=== PATIENT | male | born 1985 | race Caucasian/White ===

== ENCOUNTER 2018-03-30 11:39 | Emergency (ER) | payer OTHER ==
--- NOTE | 2018-03-30 12:04 | EDPHY ---
H & P Stated Complaint: 15 sec exposure to unknown fumes ?diesel;just wants to get checked out Time Seen by Provider: 03/30/18 12:04 HPI/ROS: HPI: This is a 32-year-old male who presents with Chief Complaint: 15 sec exposure to unknown fumes ?diesel;just wants to get checked out Location: Body Quality: Fume inhalation Duration: Prior to arrival Signs and Symptoms: no shortness of breath at rest, no shortness of breath on exertion, no cough, no chest pain, no palpitations, no lower extremity edema, no wheezing, no orthopnea, no paroxysmal nocturnal dyspnea, no fever, no injury/ trauma, no hemoptysis, no carpal pedal spasms Timing: Acute Severity: Mild Context: Patient works at the [employer] office and presents from work with walking into an area and opening the door and smelling a strong odor that was fume like in nature. He reports that he believes that was diesel fumes. Immediately started to cough and feel lightheaded. He has no history of lung disease and is a former smoker. He reports that he has a mild generalized headache. Denies worse headache of his life or thunderclap symptoms. Patient reports that the dizziness has resolved. Modifying Factors: None Comment: ROS: A comprehensive 10 system review of systems is otherwise negative aside from elements mentioned in the history of present illness. MEDICAL/SURGICAL/SOCIAL HISTORY: Medical history: Generally healthy. Does not take any regular medications. Surgical history: Denies Social history: Former smoker. Denies drug use. CONSTITUTIONAL: Extremely polite and cooperative adult white male, awake and alert, no obvious distress HEENT: Atraumatic and normocephalic, PERRL, EOMI. Nares patent; no rhinorrhea; no nasal mucosal edema. Tympanic membranes clear. Oropharynx clear, no exudate and moist pink mucosa. Airway patent. No lymphadenopathy. No meningismus. Cardiovascular: Normal S1/S2, regular rate, regular rhythm, without murmur rub or gallop. PULMONARY/CHEST: Symmetrical and nontender. Clear to auscultation bilaterally. Good air movement. No accessory muscle usage. ABDOMEN: Soft, nondistended, nontender, no rebound, no guarding, no peritoneal signs, no masses or organomegaly. No CVAT. EXTREMITIES: 2/2 pulses, strength 5/5, no deformities, no clubbing, no cyanosis or edema. NEUROLOGICAL: no focal neuro deficits. GCS 15. SKIN: Warm and dry, no erythema. no rash. Good capillary refill. Source: Patient Exam Limitations: No limitations - Personal History Current Tetanus Diphtheria and Acellular Pertussis (TDAP): Yes - Medical/Surgical History Other PMH: healthy - Social History Smoking Status: Former smoker Constitutional: Initial Vital Signs Temperature (C) 36.7 C 03/30/18 11:40 Heart Rate 74 03/30/18 11:40 Respiratory Rate 16 03/30/18 11:40 Blood Pressure 124/83 H 03/30/18 11:40 O2 Sat (%) 98 03/30/18 11:40 O2 Delivery Mode Room Air Allergies/Adverse Reactions: No Known Allergies Allergy (Unverified 03/30/18 11:44) Home Medications: Medication Instructions Recorded NK [No Known Home Meds] 03/30/18 Medical Decision Making ED Course/Re-evaluation: Vital signs reviewed and stable upon arrival. No hypoxia or respiratory distress. Lung exam is essentially benign. Long discussion with patient and no value in obtaining laboratory studies at this time as symptoms have almost completely resolved vital signs stable. Placed on 2 L nasal cannula for 1 hr with near complete relief of headache. 1300: Reassessed patient reports 75% improvement in symptoms. Vital signs stable at discharge. Advise limiting exposure and supportive care. Work note provided. This patient was seen under the supervision of my secondary supervising physician. I evaluated care for this patient independently. Discussed this patient with Dr. Adams who did not see the patient. Differential Diagnosis: Differential diagnosis includes but is not limited to carboxyhemoglobin poisoning, pneumonitis, asthma exacerbation, intoxicant inhalation. - Data Points Medications Given: Discontinued Medications Acetaminophen (Tylenol) 1,000 mg PO EDNOW ONE Stop: 03/30/18 12:10 Last Admin: 03/30/18 12:11 Dose: 1,000 mg Departure - Departure Disposition: Home, Routine, Self-Care Clinical Impression: Inhalation of noxious fumes Qualifiers: Encounter type: initial encounter Injury intent: accidental or unintentional Qualified Code(s): T59.91XA - Toxic effect of unspecified gases, fumes and vapors, accidental (unintentional), initial encounter Condition: Good Instructions: Smoke Inhalation (ED) Additional Instructions: Consume a minimum of 8-10 glasses of water or electrolyte fluid replacement drinks that include Gatorade, Powerade, Pedialyte. Please limit exposure to any more fumes until all symptoms have resolved. Exposed yourself to the fresh air as much as possible within the next 24 hr. Take Tylenol 650 mg every 4 hours and/or Ibuprofen 600 mg every 8 hours with food as needed for pain/headache. Follow up with PCP in 2-3 days if symptoms persist. Referrals: Quoc Kline MD [Primary Care Provider] - As per Instructions Stand Alone Forms: Work Excuse
[2018-03-30] MEDS ORDERED: ACETAMINOPHEN 500 MG TAB PO ONE (12:09)
[2018-03-30 13:13] VITALS: BP 109/87
== END 2018-03-30 13:12 | disposition home or self-care (01) ==
DX: T59.91XA Toxic effect of unspecified gases, fumes and vapors, accidental (unintentional), initial encounter (principal)